=== PATIENT | male | born 1990 | race Two or more races ===

== ENCOUNTER 2016-09-18 16:01 | Emergency (ER) | payer BC ==
[2016-09-18] MEDS ORDERED: AMOXICILLIN500 M1 PO (16:09)
[2016-09-18] MEDS ORDERED: NORCO 5-325 TA1 EACH PO (18:58)
== END 2016-09-18 19:02 ==
LOC: EDMED 16:01
DX: S02.32XA Fracture of orbital floor, left side, initial encounter for closed fracture (principal); R07.89 Other chest pain; F17.200 Nicotine dependence, unspecified, uncomplicated; Y04.0XXA Assault by unarmed brawl or fight, initial encounter